=== PATIENT | male | born 1960 | race Caucasian/White ===

== ENCOUNTER 2023-02-08 12:25 | Outpatient (CLI) | payer BC ==
--- NOTE | 2023-02-08 13:36 | XRAY Report ---
PROCEDURE: Thoracic Spine 3 View INDICATIONS: MID BACK PAIN,PAIN IN BOTH HANDS TECHNIQUE: 3 views of the thoracic spine were acquired. COMPARISON: None. FINDINGS: Bones: No fractures or dislocations. No suspicious bony lesions. 12 pairs of ribs are noted, and a ppear intact where visualized. Multilevel degenerative changes of the thoracic spine with osteophyto sis and disc height loss. Soft tissues: No paravertebral stripe thickening. IMPRESSION: Degenerative changes of the thoracic spine. No vertebral body compression deformities. Reviewed by: Coleman Gonzalez MD on 02/08/2023 1:35 PM PDT Approved by: Coleman Gonzalez MD on 02/08/2023 1:35 PM PDT Station ID: [id number]
== END 2023-02-08 12:26 | disposition home or self-care (01) ==
LOC: DI 12:25
PROVIDERS: ATTEND Nurse Practitioner Family
DX: M79.641 Pain in right hand (principal); M79.642 Pain in left hand; R20.2 Paresthesia of skin; M47.814 Spondylosis without myelopathy or radiculopathy, thoracic region

== ENCOUNTER 2023-03-02 06:27 | Outpatient (CLI) | payer BC ==
[2023-03-02 07:04] LABS: ALBUMIN 4.3 g/dL (3.2-5.5); ALBUMIN/GLOBULIN RATIO 1.6 (1.0-2.2); BILIRUBIN,TOTAL 0.4 mg/dL (0.2-1.0); CALCIUM 9.6 mg/dL (8.5-10.3); CREATININE 0.9 mg/dL (0.6-1.3); POTASSIUM 3.8 mmol/L (3.5-4.5)
--- NOTE | 2023-03-02 14:14 | MRI Report ---
PROCEDURE: THORACIC SPINE W/WO INDICATIONS: MIDLINE BACK PAIN CONTRAST: GADAVIST 10.6 ML TECHNIQUE: Noncontrast sagittal T1 spin echo and T2 fast spin echo, sagittal STIR, axial T1 and T2 fast spin ech o through the thoracic spine. After the administration of contrast, axial and sagittal T1 spin echo with fat saturation through the thoracic spine. COMPARISON: Correlation is made with thoracic spine radiograph, 02/08/2023. FINDINGS: Image quality: Motion artifact is noted. Alignment and curvature: There is mildly accentuated thoracic kyphosis. No significant AP alignme nt abnormality can be seen. Marrow: Marrow is of normal overall signal. Scattered foci of T1-weighted hyperintensity and T2-we ighted hyperintensity are seen, without increased STIR signal. These foci are attributed to benign ve rtebral body hemangiomas. No acute vertebral body compression fractures. Spinal cord: Visualized spinal cord is of normal signal and size, without abnormal enhancement. Paraspinous soft tissues: No paravertebral masses or abnormal enhancement. Miscellaneous: Generalized degenerative changes are seen, scattered levels of disc space narrowing an d endplate irregularity. The T5-T6 level, there is a mild central/right disc protrusion, with minimal central canal narrowing and no central canal narrowing. No neural foraminal narrowing can be seen. At the T10-T11 level, there is mild disc bulge seen, with a mild central disc protrusion. There is mi ld central canal narrowing, with no significant mass effect upon the ventral spinal cord. There is mo derate right-sided and mild left-sided neuroforaminal narrowing. Milder degenerative changes are seen elsewhere. IMPRESSION: Scattered thoracic spine degenerative changes are seen. No abnormal enhancement can be seen. Reviewed by: Velasquez Mckeon MD on 03/02/2023 1:12 PM N[facility] Approved by: Velasquez Mckeno MD on 03/02/2023 1:12 PM NES[facility] Station ID: [id number]
== END 2023-03-02 06:28 | disposition home or self-care (01) ==
LOC: LAB 06:27
PROVIDERS: ATTEND Nurse Practitioner Family
DX: R20.0 Anesthesia of skin (principal); R20.2 Paresthesia of skin; M79.641 Pain in right hand; M79.642 Pain in left hand; M47.814 Spondylosis without myelopathy or radiculopathy, thoracic region
CPT/HCPCS: 36415; 72157; 80053; A9585

== ENCOUNTER 2023-10-04 11:54 | Emergency (ER) | payer BC ==
[2023-10-04 12:07] VITALS: BP 125/68; O2SAT 97
--- NOTE | 2023-10-04 13:00 | ED Physician Documentation ---
PD HPI BACK PAIN - Stated complaint Stated Complaint: LOWER BACK PX - Chief complaint Chief Complaint: Back Pain - History obtained from History obtained from: Patient - Additional information Additional information: 63-year-old gentleman with recurrent back pain due to an injury when he was in his 20s. 2 days ago he was lifting rocks in the yard and was doing okay immediately after but after a car ride then had severe low back pain in his usual spot. It is in the low lumbar spine is worse with bending or twisting. There is no radiation to it. No weakness, numbness, tingling, saddle anesthes ia, fevers. No incontinence of bowel or bladder. PD PAST MEDICAL HISTORY - Past Medical History Past Medical History: Yes Cardiovascular: None Respiratory: None Endocrine/Autoimmune: None GI: None HEENT: None Psych: None Musculoskeletal: None Derm: Eczema - Past Surgical History Past Surgical History: Yes General: Colonoscopy HEENT: Tonsil/Adenoidectomy - Present Medications Home Medications: Ambulatory Orders Medication Instructions Recorded Confirmed diazePAM [Valium] 5 - 10 mg PO TID PRN #15 tablet 10/04/23 - Allergies Allergies/Adverse Reactions: Allergies Allergy/AdvReac Type Severity Reaction Status Date / Time ceftriaxone sodium * Allergy Itching Verified 06/28/15 06:37 [From Rocephin] Opioids - Morphine Analogues Allergy Hives Verified 10/04/23 12:05 - Social History Does the pt smoke?: No Smoking Status: Never smoker Does the pt drink ETOH?: No Does the pt have substance abuse?: No - Immunizations Immunizations are current?: Yes - POLST Patient has POLST: No PD ED PE NORMAL - Vitals Vital signs reviewed: Yes - General General: Alert and oriented X 3, Other (Comfortable at rest but winces with motion) - Back Back: Other (Moderate bilateral paralumbar muscle tenderness.) - Derm Derm: Normal color, Warm and dry - Extremities Extremities: Other (The patient has equal and normal Achilles and patellar reflexes bilaterally. Normal sensation in all areas of the legs. Patient denies saddle anesthesia. Normal strength in flexion-extension at the ankles, knees, and flexion of the hips.) - Neuro Neuro: Alert and oriented X 3 Results - Vitals Vitals: Vital Signs - 24 hr 10/04/23 12:01 Temperature 36.4 C L Heart Rate 61 Respiratory 20 Rate Blood Pressure 125/68 O2 Saturation 97 Oxygen O2 Source Room air PD Medical Decision Making - ED course ED course: This patient has seemingly uncomplicated musculoskeletal back pain. The patient has no "red flags." Specifically denies IV drug use, fevers, incontinence, saddle anesthesia. Spinal epidural abscess was considered, given that the patient has no fever, is not diabetic, has no spinal tenderness, does not use IV drugs, and has no bilateral neurologic symptoms, the diagnosis of spinal epidural abscess is considered exceedingly unlikely. He specifically requests Valium as that has worked best in the past. He does not react well to opioids. Departure - Departure Disposition: Home, Self Care Clinical Impression: Back pain Qualifiers: Back pain location: low back pain Chronicity: acute Back pain laterality: bilateral Sciatica presence: without sciatica Qualified Code(s): M54.50 - Low ba ck pain, unspecified Condition: Good Record reviewed to determine appropriate education?: Yes Instructions: ED Low Back Pain Injury Prescriptions: diazePAM [Valium] 5 - 10 mg PO TID PRN #15 tablet PRN Reason: Spasms Comments: I sent your prescription electronically to the [facility] in [place]. Follow- up with your doctor at the end of the week and if not improved, return for new or worsening symptoms. Do not drink or drive while taking Valium.
[2023-10-04] MEDS: diazePAM 5 MG TABLET PO STA (13:03)
== END 2023-10-04 13:10 | disposition home or self-care (01) ==
LOC: ED 11:54
DX: M54.50 Low back pain, unspecified (principal)
CPT/HCPCS: 99282; 99283; A9270